=== PATIENT | female | born 1995 | race African-American/Black ===

== ENCOUNTER 2022-05-20 18:03 | Emergency (ER) | payer OTHER ==
[~2022-05-20] VITALS: Ht 160 cm; Wt 56.7 kg
--- NOTE | 2022-05-20 18:45 | NUR ---
BIBS C/O HEADACHE UPON WAKING UP THIS MORNING, HX OF MIGRAINE
--- NOTE | 2022-05-20 19:12 | NUR ---
URINE COLLECTED SENT TO LAB
[2022-05-20] MEDS ORDERED: ACETAMINOPHEN ES 500 MG TABLET ONE (19:16)
[2022-05-20] MEDS ORDERED: METOCLOPRAMIDE HCL 10 MG TABLET ONE (19:16)
[2022-05-20] MEDS ORDERED: diphenhydrAMINE HCL 50 MG CAPSULE ONE (19:16)
--- NOTE | 2022-05-20 19:20 | NUR ---
Note undone in EDM - 05/20/22 at 1937 by LAURA RECEIVED REPORT FROM MARINA NORRIS. PATIENT CAME INITIALLY WITH CC OF HEADACHE. PER PT SCALE OF 9/10. ORAL MEDS GIVEN FOR PAIN RELIEF. WILL MONITOR PT. VITALS CHECKED.
[2022-05-20] MEDS ORDERED: diphenhydrAMINE HCL 25 MG CAPSULE PO ONE (19:30)
[2022-05-20] MEDS ORDERED: METOCLOPRAMIDE HCL 10 MG TABLET PO ONE (19:30)
[2022-05-20] MEDS ORDERED: ACETAMINOPHEN ES 500 MG TABLET PO ONE (19:30)
[2022-05-20] MEDS ORDERED: METO-295 PO (20:14)
--- NOTE | 2022-05-20 20:16 | NUR ---
Patient discharged to home in stable condition. Written and verbal after care instructions given. Patient verbalizes understanding of instruction.
[2022-05-20 20:17] VITALS: BP 113/67
== END 2022-05-20 20:18 | disposition home or self-care (01) ==
LOC: ER 18:03
DX: G43.909 Migraine, unspecified, not intractable, without status migrainosus (principal); J45.909 Unspecified asthma, uncomplicated; E03.9 Hypothyroidism, unspecified
CPT/HCPCS: 99284; Q0163; J8597

== ENCOUNTER 2022-05-22 18:59 | Emergency (ER) | payer OTHER ==
[~2022-05-22 18:59] MED LIST: METO-295 PO
--- NOTE | 2022-05-22 20:00 | NUR ---
CALLED PT TO TRIAGE ROOM, NO ANSWER
--- NOTE | 2022-05-22 20:11 | NUR ---
CALLED PT TO TRIAGE ROOM, NO ANSWER
== END 2022-05-22 20:12 | disposition left against medical advice (07) ==
LOC: ER 19:01
DX: Z53.21 Procedure and treatment not carried out due to patient leaving prior to being seen by health care provider (principal)